=== PATIENT | female | born 1980 | race Caucasian/White ===

== ENCOUNTER 2018-07-07 15:26 | Emergency (ER) | payer OTHER ==
--- NOTE | 2018-07-07 15:55 | ERPHSYRPT ---
- History of Present Illness Time Seen by Provider: 07/07/18 15:51 Source: patient Patient Subjective Stated Complaint: pt here for pain to right shoulder, no injury,for about a week now, and states that her fingers are going numb Triage Nursing Assessment: pt alert, walked in, resp easy, skin w/d/p. no fever , able to move fingers well, no swelling Physician History: mild to mod positional ache pain of the neck rad to the right hand as numbness, no injury, hx obesity and smoking Allergies/Adverse Reactions: No Known Drug Allergies Allergy (Verified 07/07/18 15:37) Home Medications: Carvedilol 12.5 mg [Coreg 12.5 mg] 12.5 mg PO BID 10/29/16 [History] Amlodipine Besylate 07/07/18 [History] Ipratropium/Albuterol Sulfate [Combivent Respimat 20-100 Mcg] 07/07/18 [History ] Hx Tetanus, Diphtheria Vaccination/Date Given: Yes (2013) Hx Influenza Vaccination/Date Given: Yes Hx Pneumococcal Vaccination/Date Given: No Immunizations Up to Date: Yes - Review of Systems Constitutional: No Fever Eyes: No Vision Changes Ears, Nose, & Throat: No Mouth Pain Respiratory: No Dyspnea Cardiac: No Chest Pain Abdominal/Gastrointestinal: No Abdominal Pain Musculoskeletal: Neck Pain, No Back Pain, No Fall Skin: No Rash Neurological: No Dizziness, No Focal Weakness, No Headache - Past Medical History Pertinent Past Medical History: Yes Neurological History: Migraines ENT History: No Pertinent History Cardiac History: High Cholesterol, Hypertension Respiratory History: COPD, Sleep Apnea Endocrine Medical History: Hypothyroidism Musculoskeletal History: No Pertinent History GI Medical History: Gallbladder Disease History: Kidney Cancer Psycho-Social History: Anxiety, Depression, Panic Disorder Female Reproductive Disorders: Abnormal Uterine Bleeding Other Medical History: [place] 7.5, Xanax, - Past Surgical History Past Surgical History: Yes Neuro Surgical History: No Pertinent History Cardiac: No Pertinent History Respiratory: No Pertinent History Gastrointestinal: Cholecystectomy Genitourinary: Other Musculoskeletal: No Pertinent History Female Surgical History: Section Other Surgical History: left kidney removal - Social History Smoking Status: Current every day smoker How long have you smoked: 22 Exposure to second hand smoke: Yes Drug Use: none Patient Lives Alone: No Significant Family History: no pertinent family hx - Female History Hx Last Menstrual Period: none Hx Now: No - Nursing Vital Signs Nursing Vital Signs: Initial Vital Signs Temperature 97.8 F 07/07/18 15:31 Pulse Rate 63 07/07/18 15:31 Respiratory Rate 18 07/07/18 15:31 Blood Pressure 118/88 07/07/18 15:31 O2 Sat by Pulse Oximetry 100 07/07/18 15:31 Pain Scale Pain Intensity 8 - Jadyn Coma Scale Best Eye Response (Jadyn): (4) open spontaneously Best Verbal Response (Freedom): (5) oriented Best Motor Response (Freedom): (6) obeys commands Freedom Total: 15 - Physical Exam General Appearance: no apparent distress Eye Exam: bilateral eye: PERRL, EOMI Ears, Nose, Throat Exam: moist mucous membranes Neck Exam: other (tender paracervical neck, nontender midline neck and back) Respiratory: normal breath sounds Cardiovascular: regular rate/rhythm Gastrointestinal: soft, No tenderness Back Exam: No vertebral tenderness Extremity Exam: normal range of motion Mental Status: alert, oriented x 3, cooperative, other (cn 3 to 10 grossly intact, no edema, 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, PERRL Skin Exam: warm, dry SpO2 Interpretation: normal SpO2: 100 Oxygen Delivery: Room Air - Course Nursing assessment & vital signs reviewed: Yes - CT Exams Head CT Interpretation: Negative, Discussed w/radiologist Cervical Spine CT Interpretation: Negative, Discussed w/radiologist Ordered Tests: Active Orders 24 hr Category Date Time Status IV Insertion STAT Care 07/07/18 18:28 Ordered CERVICAL SPINE WO CONTRAST [CT] Stat Exams 07/07/18 15:50 Taken HEAD WITHOUT CONTRAST [CT] Stat Exams 07/07/18 15:49 Taken CBC W DIFF Stat Lab 07/07/18 16:21 Completed CMP Stat Lab 07/07/18 16:21 Completed HCG QUALITATIVE,SERUM Stat Lab 07/07/18 16:21 Completed Urine Triage Profile Stat Lab 07/07/18 16:20 Completed Medication Summary Generic Name Dose Route Start Last Admin Trade Name Freq PRN Reason Stop Dose Admin Sodium Chloride 1,000 mls @ 999 mls/hr 07/07/18 18:28 Sodium Chloride 0.9% 1000 Ml IV 07/07/18 19:28 .Q1H1M STA Discontinued Medications Generic Name Dose Route Start Last Admin Trade Name Freq PRN Reason Stop Dose Admin Aspirin 324 mg 07/07/18 18:26 Baby Aspirin 81 Mg Chew PO 07/07/18 18:27 STAT ONE Lab/Rad Data: Laboratory Result Diagrams 07/07/18 16:21 07/07/18 16:21 Laboratory Results 07/07/18 07/07/18 07/07/18 Range/Units 16:21 16:21 16:21 WBC 13.5 H (4.0-10.5) K/mm3 RBC 5.12 (4.1-5.4) M/mm3 Hgb 15.5 (12.0-16.0) gm/dl Hct 48.7 H (35-47) % MCV 95.1 (78-100) fl MCH 30.3 (26-32) pg MCHC 31.8 L (32-36) g/dl RDW 14.9 H (11.5-14.0) % Plt Count 254 (150-450) K/mm3 MPV 11.2 H (6-9.5) fl Gran % 61.1 (36.0-66.0) % Eos # (Auto) 0.31 (0-0.5) Absolute Lymphs (auto) 3.84 (1.0-4.6) Absolute Monos (auto) 0.99 (0.0-1.3) Lymphocytes % 28.5 (24.0-44.0) % Monocytes % 7.3 (0.0-12.0) % Eosinophils % 2.3 (0.00-5.0) % Basophils % 0.8 (0.0-0.4) % Absolute Granulocytes 8.24 H (1.4-6.9) Basophils # 0.11 (0-0.4) Sodium 140 (137-145) mmol/L Potassium 4.6 (3.5-5.1) mmol/L Chloride 104 (98-107) mmol/L Carbon Dioxide 29 (22-30) mmol/L Anion Gap 12.2 (5-15) MEQ/L BUN 24 H (7-17) mg/dL Creatinine 1.52 H (0.52-1.04) mg/dL Estimated GFR 40.7 ML/MIN Glucose 100 (74-106) mg/dL Calcium 9.4 (8.4-10.2) mg/dL Total Bilirubin 0.30 (0.2-1.3) mg/dL AST 28 (14-36) U/L ALT 26 (0-35) U/L Alkaline Phosphatase 104 (38-126) U/L Serum Total Protein 8.3 H (6.3-8.2) g/dL Albumin 4.3 (3.5-5.0) g/dL Serum , Qual NEGATIVE (Negative) Urine Opiates Level (NEGATIVE) Ur Methadone (NEGATIVE) Urine Barbiturates (NEGATIVE) Ur Phencyclidine (PCP) (NEGATIVE) Urine Amphetamine (NEGATIVE) U Benzodiazepine Level (NEGATIVE) Urine Cocaine (NEGATIVE) Urine Marijuana (THC) (NEGATIVE) 07/07/18 Range/Units 16:20 WBC (4.0-10.5) K/mm3 RBC (4.1-5.4) M/mm3 Hgb (12.0-16.0) gm/dl Hct (35-47) % MCV (78-100) fl MCH (26-32) pg MCHC (32-36) g/dl RDW (11.5-14.0) % Plt Count (150-450) K/mm3 MPV (6-9.5) fl Gran % (36.0-66.0) % Eos # (Auto) (0-0.5) Absolute Lymphs (auto) (1.0-4.6) Absolute Monos (auto) (0.0-1.3) Lymphocytes % (24.0-44.0) % Monocytes % (0.0-12.0) % Eosinophils % (0.00-5.0) % Basophils % (0.0-0.4) % Absolute Granulocytes (1.4-6.9) Basophils # (0-0.4) Sodium (137-145) mmol/L Potassium (3.5-5.1) mmol/L Chloride (98-107) mmol/L Carbon Dioxide (22-30) mmol/L Anion Gap (5-15) MEQ/L BUN (7-17) mg/dL Creatinine (0.52-1.04) mg/dL Estimated GFR ML/MIN Glucose (74-106) mg/dL Calcium (8.4-10.2) mg/dL Total Bilirubin (0.2-1.3) mg/dL AST (14-36) U/L ALT (0-35) U/L Alkaline Phosphatase (38-126) U/L Serum Total Protein (6.3-8.2) g/dL Albumin (3.5-5.0) g/dL Serum , Qual (Negative) Urine Opiates Level NEGATIVE (NEGATIVE) Ur Methadone NEGATIVE (NEGATIVE) Urine Barbiturates NEGATIVE (NEGATIVE) Ur Phencyclidine (PCP) NEGATIVE (NEGATIVE) Urine Amphetamine NEGATIVE (NEGATIVE) U Benzodiazepine Level POSITIVE (NEGATIVE) Urine Cocaine NEGATIVE (NEGATIVE) Urine Marijuana (THC) NEGATIVE (NEGATIVE) - Progress Progress: improved Progress Note: 07/07/18 18:34 differential d/w pt as renal insufficiency, cervical radiculopathy, neuropathy, tia, muscle strain, pt refuses iv fluids or admission, and demands to leave - Departure Time of Disposition: 18:36 Departure Disposition: Home Clinical Impression: Neuropathy Condition: Stable Critical Care Time: No Referrals: DUANE ARITA [Primary Care Provider] - Instructions: Paresthesias (DC) Additional Instructions: see your doctor tomorrow, aspirin, oral fluids, return at anytime
[2018-07-07 16:33] LABS: BASOPHIL % 0.8 % (0.0-0.4); Basophil (Absolute #) 0.11 (0-0.4); Eosinophil % 2.3 % (0.00-5.0); Eosinophil (Absolute #) 0.31 (0-0.5); Granulocyte Absolute (ANC) 8.24 (1.4-6.9); Granulocytes % 61.1 % (36.0-66.0); Hematocrit 48.7 % (35-47); Hemoglobin 15.5 gm/dl (12.0-16.0); Lymphocyte (Absolute #) 3.84 (1.0-4.6); Lymphocytes % 28.5 % (24.0-44.0); Mean Cell Volume 95.1 fl (78-100); Mean Corpuscular Hemoglobin 30.3 pg (26-32); Mean Corpuscular Hgb Concent. 31.8 g/dl (32-36); Mean Platelet Volume 11.2 fl (6-9.5); Monocyte (Absolute #) 0.99 (0.0-1.3); Monocytes % 7.3 % (0.0-12.0); Platelet Count 254 K/mm3 (150-450); Red Blood Count 5.12 M/mm3 (4.1-5.4); Red Cell Distribution Width 14.9 % (11.5-14.0); White Blood Count 13.5 K/mm3 (4.0-10.5)
[2018-07-07 16:54] LABS: ALBUMIN 4.3 g/dL (3.5-5.0); ANION GAP 12.2 MEQ/L (5-15); BILIRUBIN,TOTAL 0.3 mg/dL (0.2-1.3); Calcium 9.4 mg/dL (8.4-10.2); Creatinine 1 1.52 mg/dL (0.52-1.04); Potassium 4.6 mmol/L (3.5-5.1); Total Protein 8.3 g/dL (6.3-8.2)
[2018-07-07 16:55] LABS: Amphetamine,Urine NEGATIVE (NEGATIVE); Barbiturate,Urine NEGATIVE (NEGATIVE); Benzodiazepine,Urine POSITIVE (NEGATIVE); Cocaine,Urine NEGATIVE (NEGATIVE); Methadone,Urine NEGATIVE (NEGATIVE); Opiate,Urine NEGATIVE (NEGATIVE); PCP,Urine NEGATIVE (NEGATIVE); THC,Urine NEGATIVE (NEGATIVE)
[2018-07-07] MEDS ORDERED: BABY ASPIRIN 81 MG CHEW PO ONE (18:26)
[2018-07-07] MEDS ORDERED: Sodium Chloride 0.9% 1000 ML 1,000 ML IV STA (18:28)
[2018-07-07] MEDS ORDERED: BABY ASPIRIN 81 MG CHEW ONE (18:33)
[2018-07-07 18:53] VITALS: BP 130/85; PULSE 64; O2SAT 98
--- NOTE | 2018-07-08 08:56 | XRAY ---
Indication: Headache and right neck pain. Bilateral arm numbness. Multiple contiguous axial images obtained through the cervical spine. Sagittal and coronal reformatted images obtained. Comparison: None. Axial images negative for acute fracture, suspicious bony lesions, or spinal canal stenosis. Minimal C5-C7 anterior endplate spurring. Sagittal and coronal reformatted images demonstrates cervical lordotic reversal, positional versus paraspinal spasm. Vertebral body heights and disc spaces maintained. No acute compression fracture, subluxation, or jumped facet. Normal-appearing craniocervical junction. Visualized noncontrasted soft tissues unremarkable. Impression: Cervical lordotic reversal, positional versus paraspinal spasm. Minimal C5-C7 spurring. Remaining CT cervical spine is negative. CTDI 74.85
--- NOTE | 2018-07-08 08:59 | XRAY ---
Indication: Headache and right neck pain. Multiple contiguous axial images obtained through the head without contrast. Comparison: March 04, 2016. Again normal appearing brain parenchyma, ventricles, and bony calvarium. Visualized paranasal sinuses and mastoid air cells are clear. Impression: Stable normal CT head without contrast exam. CTDI 67.99
== END 2018-07-07 18:54 | disposition home or self-care (01) ==
LOC: ED 15:26
DX: G62.9 Polyneuropathy, unspecified (principal); M54.2 Cervicalgia; R20.0 Anesthesia of skin; Z79.899 Other long term (current) drug therapy
CPT/HCPCS: 36415; 70450; 72125; 80053; 80307; 81025; 85025; 99284; A9270-GY

== ENCOUNTER 2019-04-20 17:17 | Emergency (ER) | payer OTHER ==
[2019-04-20] MEDS ORDERED: Zofran 4 MG/2 ML VIAL IV ONE (17:48)
[2019-04-20] MEDS ORDERED: TORAdol 30 mg Injection IV ONE (17:48)
[2019-04-20] MEDS ORDERED: Sodium Chloride 0.9% 1000 ML 1,000 ML IV STA (17:48)
--- NOTE | 2019-04-20 17:52 | ERPHSYRPT ---
- History of Present Illness Historian: patient Patient Subjective Stated Complaint: Pain in bilateral ovaries, was here last week in ultrasound and stated that a cyst on her ovary had grown 3x in size, Triage Nursing Assessment: Pt walked into the ER, rocking back and forth in bed in pain, states that she can't sleep anymore due to the pain although she has been having it since 04/2018, vitals wnl, bowel movements normal, pain in bilateral lower abdomen with palpatation Hx Tetanus, Diphtheria Vaccination/Date Given: Yes (2013) Hx Influenza Vaccination/Date Given: Yes Hx Pneumococcal Vaccination/Date Given: No <JOSUE SHANNON - Last Filed: 04/20/19 18:26> <LEISA OLIVER - Last Filed: 04/20/19 21:05> - History of Present Illness Time Seen by Provider: 04/20/19 17:49 Physician History: mild to mod off and on lower abdominal cramps for one year, hx ovarian cyst, no fever, +NV, no injury, hx nephrectomy (JOSUE SHANNON) Allergies/Adverse Reactions: No Known Drug Allergies Allergy (Verified 04/20/19 17:39) Home Medications: Amlodipine Besylate 5 mg PO DAILY 04/20/19 [History] Carvedilol 12.5 mg [Coreg 12.5 mg] 12.5 mg PO BID 04/20/19 [History] - Review of Systems Constitutional: No Fever Eyes: No Vision Changes Ears, Nose, & Throat: No Mouth Pain Respiratory: No Dyspnea Cardiac: No Chest Pain Abdominal/Gastrointestinal: Abdominal Pain, Nausea, Vomiting Genitourinary Symptoms: Frequency Musculoskeletal: No Neck Pain Skin: No Rash Neurological: No Dizziness <JOSUE SHANNON - Last Filed: 04/20/19 18:26> - Past Medical History Pertinent Past Medical History: Yes Neurological History: Migraines ENT History: No Pertinent History Cardiac History: High Cholesterol, Hypertension Respiratory History: COPD, Sleep Apnea Endocrine Medical History: Hypothyroidism Musculoskeletal History: No Pertinent History GI Medical History: Gallbladder Disease History: Kidney Cancer Psycho-Social History: Anxiety, Depression, Panic Disorder Female Reproductive Disorders: Abnormal Uterine Bleeding Other Medical History: [place] 7.5, Xanax, - Past Surgical History Past Surgical History: Yes Neuro Surgical History: No Pertinent History Cardiac: No Pertinent History Respiratory: No Pertinent History Gastrointestinal: Cholecystectomy Genitourinary: Other Musculoskeletal: No Pertinent History Female Surgical History: Section Other Surgical History: left kidney removal - Social History Smoking Status: Current every day smoker How long have you smoked: 22 Exposure to second hand smoke: Yes Drug Use: none Patient Lives Alone: No Significant Family History: no pertinent family hx - Female History Hx Now: No <JOSUE SHANNON - Last Filed: 04/20/19 18:26> - Physical Exam General Appearance: no apparent distress Eye Exam: eyes nml inspection Ears, Nose, Throat Exam: moist mucous membranes Neck Exam: normal inspection Respiratory Exam: normal breath sounds Cardiovascular Exam: regular rate/rhythm Gastrointestinal/Abdomen Exam: soft, tenderness, No rebound Back Exam: No vertebral tenderness Extremity Exam: normal range of motion Neurologic Exam: alert, oriented x 3, cooperative Skin Exam: normal color, warm, dry SpO2: 97 <JOSUE SHANNON - Last Filed: 04/20/19 18:26> - Nursing Vital Signs Nursing Vital Signs: Initial Vital Signs Temperature 97.9 F 04/20/19 17:24 Pulse Rate 84 04/20/19 17:24 Blood Pressure 114/88 04/20/19 17:24 O2 Sat by Pulse Oximetry 97 04/20/19 17:24 Pain Scale Pain Intensity 7 Ordered Tests: Active Orders 24 hr Category Date Time Status IV Insertion STAT Care 04/20/19 17:48 Active ABDOMEN AND PELVIS W/0 CONTRAS [CT] Stat Exams 04/20/19 18:49 Taken CBC W DIFF Stat Lab 04/20/19 18:11 Completed CMP Stat Lab 04/20/19 18:11 Completed CULTURE,URINE Stat Lab 04/20/19 18:11 Received HCG QUALITATIVE,SERUM Stat Lab 04/20/19 18:11 Completed LIPASE Stat Lab 04/20/19 18:11 Completed Lactic Acid Stat Lab 04/20/19 17:48 Completed UA W/RFX UR CULTURE Stat Lab 04/20/19 18:11 Completed Urine Triage Profile Stat Lab 04/20/19 18:11 Completed Medication Summary Discontinued Medications Generic Name Dose Route Start Last Admin Trade Name Freq PRN Reason Stop Dose Admin Sodium Chloride 1,000 mls @ 999 mls/hr 04/20/19 17:48 04/20/19 18:08 Sodium Chloride 0.9% 1000 Ml IV 04/20/19 18:48 999 mls/hr .Q1H1M STA Administration Sodium Chloride Confirm 04/20/19 18:05 Sodium Chloride 0.9% 1000 Ml Administered 04/20/19 18:06 Dose 1,000 mls @ ud .ROUTE .STK-MED ONE Ceftriaxone Sodium/Dextrose 1 g in 50 mls @ 100 mls/hr 04/20/19 19:26 19:43 Rocephin 1 Gm-D5w 50 Ml Bag IV 04/20/19 19:55 1 g/hr STAT STA 50 mls/hr Administration Ceftriaxone Sodium/Dextrose Confirm 04/20/19 19:32 Rocephin 1 Gm-D5w 50 Ml Bag Administered 04/20/19 19:33 Dose 1 g in 50 mls @ ud IV .STK-MED ONE Ketorolac Tromethamine 30 mg 04/20/19 17:48 04/20/19 18:06 Toradol 30 Mg Injection IV 04/20/19 17:49 30 mg STAT ONE Administration Ketorolac Tromethamine Confirm 04/20/19 18:05 Toradol 30 Mg Injection Administered 04/20/19 18:06 Dose 30 mg .ROUTE .STK-MED ONE Ondansetron HCl 4 mg 04/20/19 17:48 04/20/19 18:07 Zofran 4 Mg/2 Ml Vial IV 04/20/19 17:49 4 mg STAT ONE Administration Ondansetron HCl Confirm 04/20/19 18:04 Zofran 4 Mg/2 Ml Vial Administered 04/20/19 18:05 Dose 4 mg .ROUTE .STK-MED ONE Lab/Rad Data: Laboratory Result Diagrams 04/20/19 18:11 04/20/19 18:11 Laboratory Results 04/20/19 04/20/19 04/20/19 Range/Units 18:11 18:11 18:11 WBC (4.0-10.5) K/mm3 RBC (4.1-5.4) M/mm3 Hgb (12.0-16.0) gm/dl Hct (35-47) % MCV (78-100) fl MCH (26-32) pg MCHC (32-36) g/dl RDW (11.5-14.0) % Plt Count (150-450) K/mm3 MPV (6-9.5) fl Gran % (36.0-66.0) % Eos # (Auto) (0-0.5) Absolute Lymphs (auto) (1.0-4.6) Absolute Monos (auto) (0.0-1.3) Lymphocytes % (24.0-44.0) % Monocytes % (0.0-12.0) % Eosinophils % (0.00-5.0) % Basophils % (0.0-0.4) % Absolute Granulocytes (1.4-6.9) Basophils # (0-0.4) Sodium (137-145) mmol/L Potassium (3.5-5.1) mmol/L Chloride (98-107) mmol/L Carbon Dioxide (22-30) mmol/L Anion Gap (5-15) MEQ/L BUN (7-17) mg/dL Creatinine (0.52-1.04) mg/dL Estimated GFR ML/MIN Glucose (74-106) mg/dL Lactic Acid (0.4-2.0) Calcium (8.4-10.2) mg/dL Total Bilirubin (0.2-1.3) mg/dL AST (14-36) U/L ALT (0-35) U/L Alkaline Phosphatase (38-126) U/L Serum Total Protein (6.3-8.2) g/dL Albumin (3.5-5.0) g/dL Lipase (23-300) U/L Serum , Qual NEGATIVE (Negative) Urine Color YELLOW (YELLOW) Urine Appearance CLOUDY (CLEAR) Urine pH 5.0 (5-6) Ur Specific [place] 1.020 (1.005-1.025) Urine Protein 100 (Negative) Urine Ketones NEGATIVE (NEGATIVE) Urine Blood SMALL (0-5) [place]/ul Urine Nitrite NEGATIVE (NEGATIVE) Urine Bilirubin NEGATIVE (NEGATIVE) Urine Urobilinogen 2 (0-1) mg/dL Ur Leukocyte Esterase MODERATE (NEGATIVE) Urine WBC (Auto) >100 (0-5) /HPF Urine RBC (Auto) 3-5 (0-2) /HPF U Epithel Cells (Auto) MODERATE (FEW) /HPF Urine Bacteria (Auto) FEW (NEGATIVE) /HPF Urine Mucus (Auto) SLIGHT (NEGATIVE) /HPF Urine Culture Reflexed YES (NO) Urine Glucose NEGATIVE (NEGATIVE) mg/dL Urine Opiates Level NEGATIVE (NEGATIVE) Ur Methadone NEGATIVE (NEGATIVE) Urine Barbiturates NEGATIVE (NEGATIVE) Ur Phencyclidine (PCP) NEGATIVE (NEGATIVE) Urine Amphetamine NEGATIVE (NEGATIVE) U Benzodiazepine Level NEGATIVE (NEGATIVE) Urine Cocaine NEGATIVE (NEGATIVE) Urine Marijuana (THC) NEGATIVE (NEGATIVE) 04/20/19 04/20/19 04/20/19 Range/Units 18:11 18:11 17:48 WBC 11.9 H (4.0-10.5) K/mm3 RBC 5.34 (4.1-5.4) M/mm3 Hgb 16.4 H (12.0-16.0) gm/dl Hct 49.7 H (35-47) % MCV 93.1 (78-100) fl MCH 30.7 (26-32) pg MCHC 33.0 (32-36) g/dl RDW 13.6 (11.5-14.0) % Plt Count 316 (150-450) K/mm3 MPV 10.5 H (6-9.5) fl Gran % 66.1 H (36.0-66.0) % Eos # (Auto) 0.15 (0-0.5) Absolute Lymphs (auto) 3.00 (1.0-4.6) Absolute Monos (auto) 0.80 (0.0-1.3) Lymphocytes % 25.3 (24.0-44.0) % Monocytes % 6.8 (0.0-12.0) % Eosinophils % 1.3 (0.00-5.0) % Basophils % 0.5 (0.0-0.4) % Absolute Granulocytes 7.84 H (1.4-6.9) Basophils # 0.06 (0-0.4) Sodium 141 (137-145) mmol/L Potassium 4.2 (3.5-5.1) mmol/L Chloride 108 H (98-107) mmol/L Carbon Dioxide 24 (22-30) mmol/L Anion Gap 13.7 (5-15) MEQ/L BUN 23 H (7-17) mg/dL Creatinine 1.65 H (0.52-1.04) mg/dL Estimated GFR 36.8 ML/MIN Glucose 93 (74-106) mg/dL Lactic Acid 0.9 (0.4-2.0) Calcium 9.3 (8.4-10.2) mg/dL Total Bilirubin 0.40 (0.2-1.3) mg/dL AST 29 (14-36) U/L ALT 20 (0-35) U/L Alkaline Phosphatase 127 H (38-126) U/L Serum Total Protein 8.1 (6.3-8.2) g/dL Albumin 4.0 (3.5-5.0) g/dL Lipase 132 (23-300) U/L Serum , Qual (Negative) Urine Color (YELLOW) Urine Appearance (CLEAR) Urine pH (5-6) Ur Specific [place] (1.005-1.025) Urine Protein (Negative) Urine Ketones (NEGATIVE) Urine Blood (0-5) [place]/ul Urine Nitrite (NEGATIVE) Urine Bilirubin (NEGATIVE) Urine Urobilinogen (0-1) mg/dL Ur Leukocyte Esterase (NEGATIVE) Urine WBC (Auto) (0-5) /HPF Urine RBC (Auto) (0-2) /HPF U Epithel Cells (Auto) (FEW) /HPF Urine Bacteria (Auto) (NEGATIVE) /HPF Urine Mucus (Auto) (NEGATIVE) /HPF Urine Culture Reflexed (NO) Urine Glucose (NEGATIVE) mg/dL Urine Opiates Level (NEGATIVE) Ur Methadone (NEGATIVE) Urine Barbiturates (NEGATIVE) Ur Phencyclidine (PCP) (NEGATIVE) Urine Amphetamine (NEGATIVE) U Benzodiazepine Level (NEGATIVE) Urine Cocaine (NEGATIVE) Urine Marijuana (THC) (NEGATIVE) <JOSUE SHANNON - Last Filed: 04/20/19 18:26> - Progress Progress: unchanged Will see patient in: office Counseled pt/family regarding: need for follow-up <LEISA OLIVER - Last Filed: 04/20/19 21:05> - Progress Progress Note: 04/20/19 18:[address] Oliver at 19:00 (JOSUE SHANNON) <JOSUE SHANNON - Last Filed: 04/20/19 18:26> - Departure Departure Disposition: Home Critical Care Time: No <LEISA OLIVER - Last Filed: 04/20/19 21:05> - Departure Clinical Impression: Renal lesion Condition: Stable Referrals: DUANE ARITA [Primary Care Provider] - Additional Instructions: F/U with Nephrology or Oncology for R kidney mass, and ovarian cyst vs mass. Prescriptions: Cefdinir [Omnicef] 300 mg PO BID #14 capsule
[2019-04-20] MEDS ORDERED: Zofran 4 MG/2 ML VIAL ONE (18:04)
[2019-04-20] MEDS ORDERED: Sodium Chloride 0.9% 1000 ML 1,000 ML ONE (18:05)
[2019-04-20] MEDS ORDERED: TORAdol 30 mg Injection ONE (18:05)
[2019-04-20 18:12] LABS: BASOPHIL % 0.5 % (0.0-0.4); Basophil (Absolute #) 0.06 (0-0.4); Eosinophil % 1.3 % (0.00-5.0); Eosinophil (Absolute #) 0.15 (0-0.5); Granulocyte Absolute (ANC) 7.84 (1.4-6.9); Granulocytes % 66.1 % (36.0-66.0); Hematocrit 49.7 % (35-47); Hemoglobin 16.4 gm/dl (12.0-16.0); Lymphocytes % 25.3 % (24.0-44.0); Mean Cell Volume 93.1 fl (78-100); Mean Corpuscular Hemoglobin 30.7 pg (26-32); Mean Platelet Volume 10.5 fl (6-9.5); Monocytes % 6.8 % (0.0-12.0); Platelet Count 316 K/mm3 (150-450); Red Blood Count 5.34 M/mm3 (4.1-5.4); Red Cell Distribution Width 13.6 % (11.5-14.0); White Blood Count 11.9 K/mm3 (4.0-10.5)
[2019-04-20 18:31] LABS: Amphetamine,Urine NEGATIVE (NEGATIVE); Barbiturate,Urine NEGATIVE (NEGATIVE); Benzodiazepine,Urine NEGATIVE (NEGATIVE); Cocaine,Urine NEGATIVE (NEGATIVE); Methadone,Urine NEGATIVE (NEGATIVE); Opiate,Urine NEGATIVE (NEGATIVE); PCP,Urine NEGATIVE (NEGATIVE); THC,Urine NEGATIVE (NEGATIVE)
[2019-04-20 18:32] LABS: ANION GAP 13.7 MEQ/L (5-15); BILIRUBIN,TOTAL 0.4 mg/dL (0.2-1.3); Calcium 9.3 mg/dL (8.4-10.2); Creatinine 1 1.65 mg/dL (0.52-1.04); Potassium 4.2 mmol/L (3.5-5.1); Total Protein 8.1 g/dL (6.3-8.2)
[2019-04-20 18:36] LABS: Appearance CLOUDY (CLEAR); Bacteria FEW /HPF (NEGATIVE); Bilirubin NEGATIVE (NEGATIVE); Blood SMALL Ery/ul (0-5); Epithelial Cells MODERATE /HPF (FEW); Glucose NEGATIVE (NEGATIVE); Ketones NEGATIVE (NEGATIVE); Leukocyte Esterase MODERATE (NEGATIVE); Mucus SLIGHT /HPF (NEGATIVE); Nitrite NEGATIVE (NEGATIVE); Protein,Urine Dip 100 (Negative); Urobilinogen 2 mg/dL (0-1); WBC >100 /HPF (0-5)
[2019-04-20] MEDS ORDERED: ROCEPHIN 1 Gm-D5w 50 ml Bag** 1 G/50 ML IVPB IV STA (19:26)
[2019-04-20] MEDS ORDERED: ROCEPHIN 1 Gm-D5w 50 ml Bag** 1 G/50 ML IVPB IV ONE (19:32)
[2019-04-20 21:17] VITALS: BP 150/96; PULSE 86; O2SAT 97
[2019-04-20] MEDS ORDERED: Ativan 1 MG PO ONE (21:28)
[2019-04-20] MEDS ORDERED: Ativan 1 MG ONE (21:31)
--- NOTE | 2019-04-20 22:34 | XRAY ---
Indication: Left lower intermittent pain for several months. Multiple contiguous axial images obtained through the abdomen and pelvis without contrast as ordered. Comparison: December 09, 2017. Lung bases demonstrate stable tiny right lower lobe peripheral noncalcified micronodules favored to be granulomatous. No infiltrate or effusion. Heart is not enlarged. Noncontrasted stomach and bowel loops appear nonobstructed. Appendix not seen. Minimal sigmoid diverticulosis without diverticulitis. Stable fatty liver and cholecystectomy clips. Interval left total nephrectomy. Stable nonobstructing right renal microcalculus and small lower pole exophytic cyst. Again left ovary cyst today measuring 5.4 cm. No free fluid/air. Remaining liver, pancreas, spleen, adrenal glands, right kidney, right ureter, bladder, uterus, and aorta appear unremarkable for noncontrast exam. Osseous structures intact again with minimal degenerative changes throughout the spine. No suspicious bony lesions. Impression: 1. Enlarging 5.4 cm left ovary cyst. Pelvic sonogram may yield further information. 2. Status post left total nephrectomy without complications. 3. Stable nonobstructing right renal microcalculus and small exophytic cyst. 4. Incidental fatty liver and sigmoid diverticulosis. Comment: Preliminary interpretation was made by [facility]. No critical discrepancy. CTDI 23.68
== END 2019-04-20 21:38 | disposition home or self-care (01) ==
LOC: ED 17:17
DX: N28.9 Disorder of kidney and ureter, unspecified (principal)
CPT/HCPCS: 36415; 74176; 80053; 80307; 81001; 81025; 83605; 83690; 85025; 87077; 87086; 87186; 96360; 96365; 96374; 96375; 99284; J0696; J1885; J2405; A9270-GY

== ENCOUNTER 2019-12-13 20:12 | Emergency (ER) | payer MEDICARE ==
[2019-12-13 20:26] VITALS: O2SAT 97
--- NOTE | 2019-12-13 20:34 | ERPHSYRPT ---
- History of Present Illness Time Seen by Provider: 12/13/19 20:25 Source: patient Exam Limitations: no limitations Patient Subjective Stated Complaint: pt to ER with multiple complaints. pt with burning sensation of skin, headache, backache, bilateral leg aches. pt states symptoms have been going on x 3 days. Triage Nursing Assessment: pt A&Ox4. pt ambulated to room with no difficulty. pt appears to be in no distress. Physician History: This 39-year-old obese white female who is had history of muscle aches and pains for a few days. She states that her entire skin of her body feels as though it is burning. There is been no exposure to anybody else with similar symptoms. Patient denies cough she denies shortness of breath she denies chest pain. Patient denies dysuria or specific flank pain. Timing/Duration: day(s) (Few) Quality: burning (Paralyzed) Severity: mild Location: generalized Possible Causes: no cause identified Associated Symptoms: denies symptoms Allergies/Adverse Reactions: No Known Drug Allergies Allergy (Verified 04/20/19 17:39) Hx Tetanus, Diphtheria Vaccination/Date Given: Yes Hx Influenza Vaccination/Date Given: Yes Hx Pneumococcal Vaccination/Date Given: Yes Travel Risk - International Travel Have you traveled outside of the country in past 3 weeks: No Have you or anyone close to you been diagnosed with or: No Do your reside in a community with a known COVID-19 case?: Yes If Yes where:: [facility] - Coronavirus Screening Has patient experienced Coronavirus symptoms: No - Review of Systems Constitutional: No Symptoms Eyes: No Symptoms Ears, Nose, & Throat: No Symptoms Respiratory: No Symptoms Cardiac: No Symptoms Abdominal/Gastrointestinal: No Symptoms Genitourinary Symptoms: No Symptoms Musculoskeletal: Arthralgias, Myalgias Skin: Other (Generalized burning) Neurological: No Symptoms Psychological: No Symptoms Endocrine: No Symptoms Hematologic/Lymphatic: No Symptoms Immunological/Allergic: No Symptoms All Other Systems: Reviewed and Negative - Past Medical History Pertinent Past Medical History: Yes Neurological History: Migraines ENT History: No Pertinent History Cardiac History: High Cholesterol, Hypertension Respiratory History: COPD, Sleep Apnea Endocrine Medical History: Hypothyroidism Musculoskeletal History: No Pertinent History GI Medical History: Gallbladder Disease History: Kidney Cancer Psycho-Social History: Anxiety, Depression, Panic Disorder Female Reproductive Disorders: Abnormal Uterine Bleeding Other Medical History: [place] 7.5, Xanax, - Past Surgical History Past Surgical History: Yes Neuro Surgical History: No Pertinent History Cardiac: No Pertinent History Respiratory: No Pertinent History Gastrointestinal: Cholecystectomy Genitourinary: Kidney Surgery Musculoskeletal: No Pertinent History Female Surgical History: Section Other Surgical History: left kidney removal - Social History Smoking Status: Current every day smoker How long have you smoked: 22 Exposure to second hand smoke: Yes Drug Use: none Patient Lives Alone: No Significant Family History: no pertinent family hx - Female History Hx Now: No - Nursing Vital Signs Nursing Vital Signs: Initial Vital Signs Temperature 97.9 F 12/13/19 20:19 Pulse Rate 112 H 12/13/19 20:19 Respiratory Rate 18 12/13/19 20:19 Blood Pressure 150/111 12/13/19 20:19 O2 Sat by Pulse Oximetry 97 12/13/19 20:19 Pain Scale Pain Intensity 8 - Physical Exam General Appearance: no apparent distress, alert, anxiety, obese Eye Exam: PERRL/EOMI, eyes nml inspection Ears, Nose, Throat Exam: normal ENT inspection, moist mucous membranes Neck Exam: normal inspection, non-tender, supple, full range of motion Respiratory Exam: normal breath sounds, lungs clear, airway intact, No chest tenderness, No respiratory distress Cardiovascular Exam: regular rate/rhythm, normal heart sounds, normal peripheral pulses Gastrointestinal/Abdomen Exam: soft, normal bowel sounds, No tenderness, No guarding, No rebound Pelvic Exam: not done Rectal Exam: not done Back Exam: normal inspection, normal range of motion, No CVA tenderness, No vertebral tenderness Extremity Exam: normal inspection, normal range of motion, pelvis stable Neurologic Exam: alert, oriented x 3, cooperative, patient care manager II-XII nml as tested Skin Exam: normal color, warm, dry Lymphatic Exam: No adenopathy SpO2 Interpretation: normal SpO2: 97 O2 Delivery: Room Air Ordered Tests: Active Orders 24 hr Category Date Time Status CULTURE,URINE Stat Lab 12/13/19 21:00 Received UA W/RFX UR CULTURE Stat Lab 12/13/19 21:00 Completed Urine Triage Profile Stat Lab 12/13/19 21:00 Completed Lab/Rad Data: Laboratory Results 12/13/19 12/13/19 12/13/19 Range/Units 21:00 21:00 20:50 Urine Color [place] (YELLOW) Urine Appearance SLIGHTLY CLOUDY (CLEAR) Urine pH 6.0 (5-6) Ur Specific [place] 1.016 (1.005-1.025) Urine Protein 100 (Negative) Urine Ketones NEGATIVE (NEGATIVE) Urine Blood SMALL (0-5) [place]/ul Urine Nitrite NEGATIVE (NEGATIVE) Urine Bilirubin NEGATIVE (NEGATIVE) Urine Urobilinogen 4 (0-1) mg/dL Ur Leukocyte Esterase SMALL (NEGATIVE) Urine WBC (Auto) 16-25 (0-5) /HPF Urine RBC (Auto) 11-15 (0-2) /HPF U Epithel Cells (Auto) RARE (FEW) /HPF Urine Bacteria (Auto) RARE (NEGATIVE) /HPF Urine Mucus (Auto) SLIGHT (NEGATIVE) /HPF Urine Culture Reflexed YES (NO) Urine Glucose NEGATIVE (NEGATIVE) mg/dL Urine Opiates Level NEGATIVE (NEGATIVE) Ur Methadone NEGATIVE (NEGATIVE) Urine Barbiturates NEGATIVE (NEGATIVE) Ur Phencyclidine (PCP) NEGATIVE (NEGATIVE) Urine Amphetamine POSITIVE (NEGATIVE) U Benzodiazepine Level NEGATIVE (NEGATIVE) Urine Cocaine NEGATIVE (NEGATIVE) Urine Marijuana (THC) POSITIVE (NEGATIVE) Influenza Type A Ag NEGATIVE (NEGATIVE) Influenza Type B Ag NEGATIVE (NEGATIVE) RSV (PCR) NEGATIVE (Negative) - Progress Progress: unchanged Counseled pt/family regarding: lab results, diagnosis, need for follow-up - Departure Departure Disposition: Home Clinical Impression: UTI (urinary tract infection) Condition: Stable Critical Care Time: No Referrals: DUANE ARITA [Primary Care Provider] - Additional Instructions: Drink plenty of fluids. Take medications as prescribed. Follow-up with your primary care provider for further management Prescriptions: Ciprofloxacin [Cipro 500 MG] 500 mg PO BID #14 tablet
[2019-12-13 20:55] VITALS: BP 125/99
[2019-12-13 21:05] VITALS: PULSE 107
[2019-12-13 21:12] LABS: Appearance SLIGHTLY CLOUDY (CLEAR); Bacteria RARE /HPF (NEGATIVE); Bilirubin NEGATIVE (NEGATIVE); Blood SMALL Ery/ul (0-5); Epithelial Cells RARE /HPF (FEW); Glucose NEGATIVE (NEGATIVE); Ketones NEGATIVE (NEGATIVE); Leukocyte Esterase SMALL (NEGATIVE); Mucus SLIGHT /HPF (NEGATIVE); Nitrite NEGATIVE (NEGATIVE); Protein,Urine Dip 100 (Negative); Specific Gravity 1.016 (1.005-1.025); Urobilinogen 4 mg/dL (0-1)
[2019-12-13 21:21] LABS: INFLUENZA A NEGATIVE (NEGATIVE); INFLUENZA B NEGATIVE (NEGATIVE); RESPIRATORY SYNCTIAL VIRUS NEGATIVE (Negative)
[2019-12-13 21:24] LABS: Amphetamine,Urine POSITIVE (NEGATIVE); Barbiturate,Urine NEGATIVE (NEGATIVE); Benzodiazepine,Urine NEGATIVE (NEGATIVE); Cocaine,Urine NEGATIVE (NEGATIVE); Methadone,Urine NEGATIVE (NEGATIVE); Opiate,Urine NEGATIVE (NEGATIVE); PCP,Urine NEGATIVE (NEGATIVE); THC,Urine POSITIVE (NEGATIVE)
[2019-12-13] MEDS ORDERED: Cipro 500 MG PO ONE (21:53)
[2019-12-13] MEDS ORDERED: NORCO 5/325 MG PO ONE (21:56)
[2019-12-13] MEDS ORDERED: NORCO 5/325 MG ONE (22:10)
[2019-12-13] MEDS ORDERED: Cipro 500 MG ONE (22:10)
== END 2019-12-13 22:24 | disposition home or self-care (01) ==
LOC: ED 20:12
DX: N39.0 Urinary tract infection, site not specified (principal); I10 Essential (primary) hypertension; E78.00 Pure hypercholesterolemia, unspecified; G47.30 Sleep apnea, unspecified; J44.9 Chronic obstructive pulmonary disease, unspecified; E03.9 Hypothyroidism, unspecified; F41.9 Anxiety disorder, unspecified; Z79.891 Long term (current) use of opiate analgesic; Z79.899 Other long term (current) drug therapy
CPT/HCPCS: 80307; 81001; 87077; 87086; 87186; 87631; 99284; A9270-GY

== ENCOUNTER 2020-05-17 16:52 | Emergency (ER) | payer MEDICARE ==
[2013-04-03 02:05] VITALS: BP 148/73
== END 2020-05-17 17:24 | disposition left against medical advice (07) ==
LOC: ED 16:52
DX: Z53.9 Procedure and treatment not carried out, unspecified reason (principal)

== ENCOUNTER 2022-04-16 12:39 | Emergency (ER) | payer MEDICARE ==
--- NOTE | 2022-04-16 12:53 | ERPHSYRPT ---
- History of Present Illness Time Seen by Provider: 04/16/22 12:53 Historian: patient, EMS Exam Limitations: no limitations Patient Subjective Stated Complaint: Right sided abdominal/flank pain Triage Nursing Assessment: Patient brought back to ED per EMS and transferred to bed per self. Patient A+O X3. Patient's skin pink, warm and dry. Patient's skin pink, warm and dry. Patient complains of right sided abdominal/flank pain that started several days ago 05/31. Abdomen soft and round with BS X 4. Physician History: This is a morbidly obese 41-year-old white female who presents via EMS secondary to persistent right-sided abdominal pain and right flank pain. Patient underwent a CAT scan of abdomen pelvis on 04/14/2022. However, this study has not been read at this point in time. Patient also had laboratory work-up on the same date. Patient has had a left kidney transplant approximately 2 to 3 years ago. She has a rising creatinine level. The creatinine on 04/14/2022 was 2.24. Patient also had an elevated white count of 12.6 on the same date. Patient is not on any antibiotics and has no prescription for pain medication. Patient is a daily smoker of cigarettes. Patient also has a history of migraine headaches, elevated cholesterol, hypertension, COPD, anxiety issues, depression issues and sleep apnea. Timing/Duration: day(s) (Several days) Abdominal Pain Onset Location: RLQ, flank (Right) Severity of Pain-Max: moderate Severity of Pain-Current: moderate Modifying Factors: Improves With: nothing Associated Symptoms: denies symptoms Previous symptoms: same symptoms as today, recently seen, recently treated Allergies/Adverse Reactions: No Known Drug Allergies Allergy (Verified 04/16/22 12:43) Hx Tetanus, Diphtheria Vaccination/Date Given: Yes Hx Influenza Vaccination/Date Given: Yes Hx Pneumococcal Vaccination/Date Given: Yes Immunizations Up to Date: Yes Travel Risk - International Travel Have you traveled outside of the country in past 3 weeks: No - Coronavirus Screening Are you exhibiting any of the following symptoms?: No Close contact with a COVID-19 positive Pt in past 14-21 Days: No - Vaccine Status Have you recieved a Covid-19 vaccination: No - Review of Systems Constitutional: No Symptoms Eyes: No Symptoms Ears, Nose, & Throat: No Symptoms Respiratory: No Symptoms Cardiac: No Symptoms Abdominal/Gastrointestinal: Abdominal Pain (Right side) Genitourinary Symptoms: Flank Pain (Right side) Musculoskeletal: No Symptoms Skin: No Symptoms Neurological: No Symptoms Psychological: No Symptoms Endocrine: No Symptoms Hematologic/Lymphatic: No Symptoms Immunological/Allergic: No Symptoms All Other Systems: Reviewed and Negative - Past Medical History Pertinent Past Medical History: Yes Neurological History: Migraines ENT History: No Pertinent History Cardiac History: High Cholesterol, Hypertension Respiratory History: COPD, Sleep Apnea Endocrine Medical History: Hypothyroidism Musculoskeletal History: No Pertinent History GI Medical History: Gallbladder Disease History: Kidney Cancer Psycho-Social History: Anxiety, Depression, Panic Disorder Female Reproductive Disorders: Abnormal Uterine Bleeding Other Medical History: [place] 7.5, Xanax, - Past Surgical History Past Surgical History: Yes Neuro Surgical History: No Pertinent History Cardiac: No Pertinent History Respiratory: No Pertinent History Gastrointestinal: Cholecystectomy Genitourinary: Kidney Surgery Musculoskeletal: No Pertinent History Female Surgical History: Section Other Surgical History: left kidney removal - Social History Smoking Status: Current every day smoker How long have you smoked: 22 Exposure to second hand smoke: Yes Drug Use: none Patient Lives Alone: No Significant Family History: no pertinent family hx - Female History Hx Last Menstrual Period: menopausal Hx Now: No - Nursing Vital Signs Nursing Vital Signs: Initial Vital Signs Temperature 98.5 F 04/16/22 12:46 Pulse Rate 100 H 04/16/22 12:46 Respiratory Rate 19 04/16/22 12:46 Blood Pressure 139/89 04/16/22 12:46 O2 Sat by Pulse Oximetry 98 04/16/22 12:46 Pain Scale Pain Intensity 10 - Physical Exam General Appearance: mild distress, alert, anxiety, obese Eye Exam: PERRL/EOMI, eyes nml inspection Ears, Nose, Throat Exam: normal ENT inspection, moist mucous membranes Neck Exam: normal inspection, non-tender, supple, full range of motion Respiratory Exam: normal breath sounds, lungs clear, airway intact, No chest tenderness, No respiratory distress Cardiovascular Exam: regular rate/rhythm, normal heart sounds, normal peripheral pulses Gastrointestinal/Abdomen Exam: soft, normal bowel sounds, tenderness (Right mid to lower abdomen), guarding, No rebound Pelvic Exam: not done Rectal Exam: not done Back Exam: normal inspection, normal range of motion, CVA tenderness (Right side), No vertebral tenderness Extremity Exam: normal inspection, normal range of motion, pelvis stable Neurologic Exam: alert, oriented x 3, cooperative, frame assembler II-XII nml as tested, normal mood/affect, nml cerebellar function, nml station & gait, sensation nml Skin Exam: normal color, warm, dry Lymphatic Exam: No adenopathy SpO2 Interpretation: normal SpO2: 98 O2 Delivery: Room Air - Course Nursing assessment & vital signs reviewed: Yes Ordered Tests: Active Orders 24 hr Category Date Time Status IV Insertion STAT Care 04/16/22 13:16 Active CBC W DIFF Stat Lab 04/16/22 13:10 Received CMP Stat Lab 04/16/22 13:10 Completed CULTURE,URINE Stat Lab 04/16/22 13:10 Received UA W/RFX CULTURE Stat Lab 04/16/22 13:10 Completed Medication Summary Generic Name Dose Route Start Last Admin Trade Name Freq PRN Reason Stop Dose Admin Sodium Chloride 500 mls @ 500 mls/hr 04/16/22 13:55 Sodium Chloride 0.9% 500 Ml IV 04/16/22 14:54 .Q1H ONE Discontinued Medications Generic Name Dose Route Start Last Admin Trade Name Freq PRN Reason Stop Dose Admin Hydromorphone HCl 0.5 mg 04/16/22 13:16 04/16/22 13:32 Hydromorphone 1 Mg/1ml Inj 1 Mg/Ml Syringe IV 04/16/22 13:17 0.5 mg STAT ONE Administration Hydromorphone HCl Confirm 04/16/22 13:30 Hydromorphone 1 Mg/1ml Inj 1 Mg/Ml Syringe Administered 04/16/22 13:31 Dose 1 mg .ROUTE .STK-MED ONE Ondansetron HCl 4 mg 04/16/22 13:16 04/16/22 13:39 Ondansetron Hcl 4 Mg/2 Ml Vial IV 04/16/22 13:17 4 mg STAT ONE Administration Ondansetron HCl Confirm 04/16/22 13:29 Ondansetron Hcl 4 Mg/2 Ml Vial Administered 04/16/22 13:30 Dose 4 mg .ROUTE .STK-MED ONE Prochlorperazine Edisylate 5 mg 04/16/22 13:54 Prochlorperazine Edisylate 10 Mg/2 Ml Vial IV 04/16/22 13:55 STAT ONE Lab/Rad Data: Laboratory Result Diagrams 04/16/22 13:10 Laboratory Results 04/16/22 04/16/22 Range/Units 13:10 13:10 Sodium 138 (137-145) mmol/L Potassium 4.1 (3.5-5.1) mmol/L Chloride 107 (98-107) mmol/L Carbon Dioxide 24 (22-30) mmol/L Anion Gap 11.8 (5-15) MEQ/L BUN 17 (7-17) mg/dL Creatinine 2.53 H (0.52-1.04) mg/dL Estimated GFR 22.1 ML/MIN Glucose 113 H (74-106) mg/dL Calcium 8.6 (8.4-10.2) mg/dL Total Bilirubin 0.60 (0.2-1.3) mg/dL AST 39 H (14-36) U/L ALT 42 H (0-35) U/L Alkaline Phosphatase 156 H (38-126) U/L Serum Total Protein 8.1 (6.3-8.2) g/dL Albumin 3.7 (3.5-5.0) g/dL Urinalys Dipstick Clnc MAIN LAB Urine Color YELLOW (YELLOW) Urine Appearance CLOUDY (CLEAR) Urine pH 6.0 (5-6) Ur Specific [place] 1.015 (1.005-1.025) POC Urine Protein Conf 100 (Negative) Urine Ketones NEGATIVE (NEGATIVE) Urine Nitrite POSITIVE (NEGATIVE) Urine Bilirubin NEGATIVE (NEGATIVE) Urine Urobilinogen 0.2 (0-1) mg/dL Urine Leukocytes LARGE (NEGATIVE) Urine WBC (Auto) >100 (0-5) /HPF Urine RBC (Auto) 26-50 (0-2) /HPF U Epithel Cells (Auto) MODERATE (FEW) /HPF Urine Bacteria (Auto) MANY (NEGATIVE) /HPF Urine RBC MODERATE (0-5) Kendall/ul Urine Mucus (Auto) SLIGHT (NEGATIVE) /HPF Ur Culture Indicated? YES Urine Glucose NEGATIVE (NEGATIVE) mg/dL - Progress Progress: improved, pain not gone completely Progress Note: 04/16/22 13:56 CAT scan of the abdomen pelvis without contrast dated 04/14/2022 was read today by Dr. Davis and it shows a new 8 mm proximal right ureteral calculus producing obstructive uropathy. There is prominence of the proximal right ureter along with mild hydronephrosis. There is enlarging 8.7 cm left ovarian cyst. There is new mild diffuse fecal stasis. Counseled pt/family regarding: lab results, diagnosis, need for follow-up, rad results - Departure Departure Disposition: Home Clinical Impression: Right ureteral calculus Condition: Critical Care Time: No Referrals: DUANE ARITA, [employer]CHNICIAN [Primary Care Provider] - Follow up/PCP as directed Additional Instructions: Drink plenty of fluids. Take your medication as prescribed. Follow-up with a urologist at your scheduled appointment date and time. Return to the emergency department if symptoms worsen. If your symptoms worsen prior to your scheduled appointment date and time, you may follow-up at any emergency department including those emergency departments that have urologist on staff as discussed. Prescriptions: Hydrocodone/APAP 5/325 [[place] 5/325 mg] 1 each PO Q6H PRN PRN #10 tablet MDD 4 PRN Reason: Pain
[2022-04-16] MEDS ORDERED: Hydromorphone 1 mg/ml Injection IV ONE ×3 (13:16→15:48)
[2022-04-16] MEDS ORDERED: Zofran 4 MG/2 ML VIAL IV ONE (13:16)
[2022-04-16 13:28] LABS: Absolute Neutrophil Ct (ANC) 12.66 x10^3/uL (1.4-6.9); Basophil (Absolute #) 0.12 x10^3/uL (0-0.4); Eosinophil % 0.8 % (0.00-5.0); Eosinophil (Absolute #) 0.13 x10^3/uL (0-0.5); Hematocrit 46.3 % (35-47); Hemoglobin 15.1 g/dL (12.0-16.0); Lymphocyte (Absolute #) 2.64 x10^3/uL (1.0-4.6); Lymphocytes % 15.4 % (24.0-44.0); Mean Cell Volume 94.1 fL (78-100); Mean Corpuscular Hemoglobin 30.7 pg (26-32); Mean Corpuscular Hgb Concent. 32.6 g/dL (32-36); Mean Platelet Volume 10.2 fL (7.5-11.0); Monocyte (Absolute #) 1.41 x10^3/uL (0.0-1.3); Monocytes % 8.3 % (0.0-12.0); Platelet Count 420 x10^3/uL (150-450); Red Blood Count 4.92 x10^6/uL (4.1-5.4); Red Cell Distribution Width 12.2 % (11.5-14.0); White Blood Count 17.1 x10^3/uL (4.0-10.5)
[2022-04-16] MEDS ORDERED: Zofran 4 MG/2 ML VIAL ONE (13:29)
[2022-04-16] MEDS ORDERED: Hydromorphone 1 mg/ml Injection ONE ×3 (13:30→15:54)
[2022-04-16 13:37] LABS: Appearance CLOUDY (CLEAR); Bilirubin NEGATIVE (NEGATIVE); Dipstick done @ ? MAIN LAB; Glucose NEGATIVE (NEGATIVE); Ketones NEGATIVE (NEGATIVE); Nitrite POSITIVE (NEGATIVE); Protein,Urine Dip 100 (Negative); RBC MODERATE Ery/ul (0-5); Specific Gravity 1.015 (1.005-1.025); Urobilinogen 0.2 mg/dL (0-1)
[2022-04-16 13:41] LABS: ALBUMIN 3.7 g/dL (3.5-5.0); ANION GAP 11.8 MEQ/L (5-15); BILIRUBIN,TOTAL 0.6 mg/dL (0.2-1.3); Calcium 8.6 mg/dL (8.4-10.2); Creatinine 1 2.53 mg/dL (0.52-1.04); EST GLOMERULAR FILTRATION RATE 22.1 ML/MIN; Potassium 4.1 mmol/L (3.5-5.1); Total Protein 8.1 g/dL (6.3-8.2)
[2022-04-16 13:46] LABS: Bacteria MANY /HPF (NEGATIVE); Epithelial Cells MODERATE /HPF (FEW); Mucus SLIGHT /HPF (NEGATIVE); RBC 26-50 /HPF (0-2); WBC >100 /HPF (0-5)
[2022-04-16 13:47] LABS: Urine Cultured Indicated? YES
[2022-04-16] MEDS ORDERED: Compazine 10 MG/2 ML IV ONE (13:54)
[2022-04-16] MEDS ORDERED: Sodium Chloride 0.9% 500 ML 500 ML IV ONE ×4 (13:55→17:56)
[2022-04-16] MEDS ORDERED: Compazine 10 MG/2 ML ONE (13:57)
[2022-04-16] MEDS ORDERED: ROCEPHIN 1 Gm-D5w 50 ml Bag** 1 G/50 ML IVPB IV STA (14:55)
[2022-04-16] MEDS ORDERED: ROCEPHIN 1 Gm-D5w 50 ml Bag** 1 G/50 ML IVPB IV ONE (14:59)
[2022-04-16] MEDS ORDERED: NORCO 5/325 MG PO ONE (18:19)
[2022-04-16] MEDS ORDERED: NORCO 5/325 MG ONE (18:27)
[2022-04-16 18:55] VITALS: BP 135/86; PULSE 94; O2SAT 100
== END 2022-04-16 18:55 | disposition left against medical advice (07) ==
LOC: ED 12:39
DX: N13.2 Hydronephrosis with renal and ureteral calculous obstruction (principal); N39.0 Urinary tract infection, site not specified; R10.31 Right lower quadrant pain; R10.11 Right upper quadrant pain; Z94.0 Kidney transplant status; E78.5 Hyperlipidemia, unspecified; I10 Essential (primary) hypertension; J44.9 Chronic obstructive pulmonary disease, unspecified; Z72.0 Tobacco use; Z79.891 Long term (current) use of opiate analgesic; Z28.310 Unvaccinated for COVID-19
CPT/HCPCS: 36000; 36415; 80053; 81015; 85025; 87077; 87086; 87186; 96365; 96374; 96375; 96376; 99284; J0696; J1170; J2405; A9270-GY